=== PATIENT | female | born 1970 | race Caucasian/White ===

== ENCOUNTER 2016-10-02 12:08 | Emergency (ER) | payer SELFPAY ==
[~2016-10-02] VITALS: Ht 165.1 cm; Wt 137.3 kg
[~2016-10-02 12:08] MED LIST: ALEVE SINUS & H1 TER PO; BENTYL 20MG TAB20 MG PO; CARAFATE 1GM1 G PO; CARAFATE S1 GM/10 ML PO; CEPHALEXIN500 M1 PO; CLEOCIN HCL300 MG PO; DEPO-PROVER400 MG/ML IM; FLEXERIL 1010 MG/TAB PO; FLEXERIL10 MG PO; GAS RELIEF MAX166 MG PO; GI COCKTAIL; IMITREX NA20 MG/SPRA NS; LASIX 20MG TABL20 MG PO; LORTAB 5/500 501 TAB PO; NAPROSYN500 MG PO; NEURONTIN300 MG/CAP PO; NEXIUM 20MG20 MG; NEXIUM PO; NO HOME MEDICATIONS; NORCO 325 MG-51 TAB PO; NORFLEX 10100 MG/TAB; PEPCID 20MG TAB20 MG PO; PERCOCET 325 MG1 TA2 PO; PERCR 7.5 PO; PHENERGAN 25 TA25 MG PO; PHENERGAN25 MG RC; PRILOSEC 20MG20 MG PO; PROMETHAZINE12.5 M5 PO; PROTONIX 40MG T40 MG PO; PROVENTIL0.09 MG/A1 IH; REGLAN 10MG10 MG/TAB PO; RT ADVAIR 128 DISKUS IH; RYZOLT100 MG; TRAMADOL; TRAMADOL50 MG PO; ULTRAM 50MG TAB50 MG PO; ULTRAM ER100 MG PO; ULTRAM50 MG PO; VALIUM 5MG T5 MG/TAB PO; VICODIN 5/5001 UDTAB PO; ZEGERID 20 MG-11 CAP PO; ZOFRAN 4MG T4 MG/TAB PO; ZOFRAN4 MG PO; water pill
[2016-10-02 12:10] VITALS: TEMP 99.1
[2016-10-02] MEDS ORDERED: PHENERGAN 25 TA25 MG PO (12:16)
[2016-10-02] MEDS ORDERED: VALIUM 5MG T5 MG/TAB PO (12:17)
[2016-10-02] MEDS ORDERED: PRIL40 PO (12:17)
[2016-10-02 13:03] LABS: BASO % 0.4 % (0.0-2.0); EOS # 0.1 (0.0-0.7); EOS % 0.7 % (0-4.0); GRAN # 4.5 (1.4-6.5); GRAN % 62.4 % (42.2-75.2); HEMATOCRIT 44.5 % (37.0-47.0); HEMOGLOBIN 14.1 g/dl (12.5-16.0); LYMPH # 2.1 (1.2-3.4); MEAN CELL VOLUME 82 fl (80.0-100.0); MEAN CORPUSCULAR HEMOGLOBIN 26 pg (27.0-31.0); MEAN CORPUSCULAR HGB CONC 32 g/dl (33.0-37.0); MEAN PLATELET VOLUME 9.2 fl (7.4-10.4); MONO # 0.4 (0.1-0.6); MONO % 6.2 % (1.7-9.3); PLATELET COUNT 296 K/mm3 (130-400); RED BLOOD COUNT 5.46 M/mm3 (4.10-5.30); WHITE BLOOD COUNT 7.1 K/mm3 (4.8-10.8)
[2016-10-02 13:08] LABS: ADJUSTED CALCIUM 9.3 mg/dL (8.4-10.2); ALANINE AMINOTRANSFERASE 32 U/L (9-52); ALBUMIN 3.9 gm/dL (3.5-5.0); ALKALINE PHOSPHATASE 115 U/L (50-136); ANION GAP 12 mmol/L (7-16); BILIRUBIN,TOTAL 0.8 mg/dL (0.0-1.0); BLOOD UREA NITROGEN 9 mg/dL (7-17); CALCIUM 9.2 mg/dL (8.4-10.2); CARBON DIOXIDE 24 mmol/L (22-30); CHLORIDE 109 mmol/L (98-107); CREATININE, serum 0.95 mg/dL (0.52-1.25); GLUCOSE 96 mg/dL (74-106); POTASSIUM 3.7 mmol/L (3.4-5.0); SODIUM 144 mmol/L (137-145); TOTAL PROTEIN 7.3 gm/dL (6.4-8.2)
[2016-10-02 13:22] LABS: TROPONIN-I < 0.012 ng/mL (0.000-0.034)
[2016-10-02] MEDS ORDERED: CARAFATE S1 GM/10 ML PO (15:08)
[2016-10-02 15:12] VITALS: BP 108/80; PULSE 90
== END 2016-10-02 15:21 | disposition home or self-care (01) ==
LOC: COL.ER 12:08
PROVIDERS: Nurse Practitioner
DX: K21.9 Gastro-esophageal reflux disease without esophagitis (principal); K27.9 Peptic ulcer, site unspecified, unspecified as acute or chronic, without hemorrhage or perforation
CPT/HCPCS: J1170; J2405; J7030

== ENCOUNTER → 2017-01-10 | Outpatient (CLI) | payer OTHER ==
[~2017-01-10] MED LIST changes: +PRIL40 PO
== END ==
LOC: COL.RAD 13:38
DX: M19.012 Primary osteoarthritis, left shoulder (principal); M75.82 Other shoulder lesions, left shoulder
CPT/HCPCS: A9585; Q9967

== ENCOUNTER 2017-05-26 20:10 | Emergency (ER) | payer SELFPAY ==
[~2017-05-26] VITALS: Ht 165.1 cm; Wt 139.3 kg
[2017-05-26 20:21] VITALS: BP 129/91; TEMP 99
[2017-05-26 21:06] LABS: COLLECTION METHOD CLEAN CATCH
[2017-05-26 21:14] LABS: MUCOUS Present /lpf; PH 7 (5-8); SQUAMOUS EPITHELIAL 0-2 /hpf; URINE APPEARANCE Clear; URINE BACTERIA Occasional /hpf; URINE BILIRUBIN Negative (NEGATIVE); URINE BLOOD 2+ (NEGATIVE); URINE COLOR Yellow; URINE GLUCOSE Negative (NEGATIVE); URINE KETONE Negative (NEGATIVE); URINE LEUKOCYTE ESTERASE Trace (NEGATIVE); URINE PROTEIN(semi-quant) Negative (NEGATIVE); URINE RBC 0-2 /hpf; URINE WBC 0-2 /hpf
[2017-05-26 21:22] LABS: BASO % 0.3 % (0.0-2.0); EOS # 0.1 (0.0-0.7); EOS % 2.1 % (0-4.0); GRAN # 3.2 (1.4-6.5); GRAN % 47.7 % (42.2-75.2); HEMATOCRIT 44.1 % (37.0-47.0); HEMOGLOBIN 13.9 g/dl (12.5-16.0); LYMPH # 2.7 (1.2-3.4); LYMPH % 40.3 % (20.0-51.0); MEAN CELL VOLUME 84 fl (80.0-100.0); MEAN CORPUSCULAR HEMOGLOBIN 27 pg (27.0-31.0); MEAN CORPUSCULAR HGB CONC 32 g/dl (33.0-37.0); MEAN PLATELET VOLUME 8.9 fl (7.4-10.4); MONO # 0.6 (0.1-0.6); MONO % 8.7 % (1.7-9.3); PLATELET COUNT 243 K/mm3 (130-400); RED BLOOD COUNT 5.25 M/mm3 (4.10-5.30); WHITE BLOOD COUNT 6.7 K/mm3 (4.8-10.8)
[2017-05-26 21:26] LABS: ADJUSTED CALCIUM 9.1 mg/dL (8.4-10.2); ALBUMIN 3.6 gm/dL (3.5-5.0); BILIRUBIN,TOTAL 0.4 mg/dL (0.0-1.0); CALCIUM 8.8 mg/dL (8.4-10.2); CREATININE, serum 1.02 mg/dL (0.52-1.25); POTASSIUM 3.4 mmol/L (3.4-5.0); TOTAL PROTEIN 7.2 gm/dL (6.4-8.2)
[2017-05-26 22:50] VITALS: PULSE 92
== END 2017-05-26 22:53 | disposition home or self-care (01) ==
LOC: COL.ER 20:10
PROVIDERS: Nurse Practitioner
DX: R10.9 Unspecified abdominal pain (principal); G43.909 Migraine, unspecified, not intractable, without status migrainosus; G89.29 Other chronic pain; M79.672 Pain in left foot; Z87.11 Personal history of peptic ulcer disease; Z90.49 Acquired absence of other specified parts of digestive tract; Z98.890 Other specified postprocedural states
CPT/HCPCS: J1885; J2360

== ENCOUNTER 2017-07-23 15:10 | Emergency (ER) | payer BC ==
[~2017-07-23] VITALS: Ht 165.1 cm; Wt 139.1 kg
[2017-07-23 15:13] VITALS: BP 140/104; TEMP 99.4
[2017-07-23 16:52] LABS: BASO % 0.4 % (0.0-2.0); EOS # 0.3 (0.0-0.7); EOS % 3.2 % (0-4.0); GRAN # 4.2 (1.4-6.5); GRAN % 54.3 % (42.2-75.2); HEMATOCRIT 46.9 % (37.0-47.0); HEMOGLOBIN 14.5 g/dl (12.5-16.0); LYMPH # 2.7 (1.2-3.4); LYMPH % 34.9 % (20.0-51.0); MEAN CELL VOLUME 85 fl (80.0-100.0); MEAN CORPUSCULAR HEMOGLOBIN 26 pg (27.0-31.0); MEAN CORPUSCULAR HGB CONC 31 g/dl (33.0-37.0); MEAN PLATELET VOLUME 9.2 fl (7.4-10.4); MONO # 0.5 (0.1-0.6); MONO % 6.7 % (1.7-9.3); PLATELET COUNT 301 K/mm3 (130-400); RED BLOOD COUNT 5.54 M/mm3 (4.10-5.30); REDCELL DISTRIBUTION WIDTH-CV 14.8 % (11.5-14.5)
[2017-07-23] MEDS ORDERED: BENTYL 10MG10 MG/CAP PO (16:53)
[2017-07-23] MEDS ORDERED: VITAMINE200 PO (16:54)
[2017-07-23] MEDS ORDERED: VITAMIN B COMPL1 SGL PO (16:54)
[2017-07-23 16:56] LABS: ALBUMIN 4.1 gm/dL (3.5-5.0); BILIRUBIN,TOTAL 0.7 mg/dL (0.0-1.0); CALCIUM 9.3 mg/dL (8.4-10.2); CREATININE, serum 0.97 mg/dL (0.52-1.25); POTASSIUM 3.7 mmol/L (3.4-5.0); TOTAL PROTEIN 7.7 gm/dL (6.4-8.2)
[2017-07-23] MEDS ORDERED: PEPCID40 MG PO (17:42)
[2017-07-23] MEDS ORDERED: CARAFATE 1GM1 G PO (17:42)
[2017-07-23 18:29] VITALS: PULSE 90
== END 2017-07-23 18:31 | disposition home or self-care (01) ==
LOC: COL.ER 15:10
PROVIDERS: Emergency Medicine
DX: K29.70 Gastritis, unspecified, without bleeding (principal); K21.9 Gastro-esophageal reflux disease without esophagitis; Z90.49 Acquired absence of other specified parts of digestive tract; Z88.8 Allergy status to other drugs, medicaments and biological substances; Z91.040 Latex allergy status
CPT/HCPCS: J2060; J2550; J3010; J7030

== ENCOUNTER 2018-08-24 06:56 | Emergency (ER) | payer SELFPAY | END 2018-08-24 07:33 | disposition home or self-care (01) | LOC: COL.ER 06:56 | DX: H57.89 Other specified disorders of eye and adnexa (principal); Z98.890 Other specified postprocedural states ==

== ENCOUNTER 2019-03-02 22:50 | Emergency (ER) | payer SELFPAY ==
[~2019-03-02] VITALS: Ht 165.1 cm; Wt 141.8 kg
[~2019-03-02 22:50] MED LIST changes: +BACTROBAN 22GM22 GM TP; +BENTYL 10MG10 MG/CAP PO; +NEURONTIN600 MG/TAB; +PEPCID40 MG PO; +VALTREX1 GM PO; +VITAMIN B COMPL1 SGL PO; +VITAMINE200 PO
[2019-03-02 23:07] VITALS: TEMP 97.6
[2019-03-03 02:59] LABS: BASO % 0.2 % (0.0-2.0); EOS # 0.2 (0.0-0.7); EOS % 1.9 % (0-4.0); GRAN # 6.3 (1.4-6.5); GRAN % 56.2 % (42.2-75.2); HEMATOCRIT 41.1 % (37.0-47.0); HEMOGLOBIN 12.4 g/dl (12.5-16.0); LYMPH # 3.8 (1.2-3.4); LYMPH % 33.9 % (20.0-51.0); MEAN CELL VOLUME 81 fl (80.0-100.0); MEAN CORPUSCULAR HEMOGLOBIN 25 pg (27.0-31.0); MEAN CORPUSCULAR HGB CONC 30 g/dl (33.0-37.0); MEAN PLATELET VOLUME 9.5 fl (7.4-10.4); MONO # 0.8 (0.1-0.6); MONO % 7.4 % (1.7-9.3); PLATELET COUNT 318 K/mm3 (130-400); RED BLOOD COUNT 5.06 M/mm3 (4.10-5.30); REDCELL DISTRIBUTION WIDTH-CV 15.9 % (11.5-14.5)
[2019-03-03 03:08] LABS: CALCIUM 8.3 mg/dL (8.4-10.2); CREATININE, serum 1.06 (0.52-1.25); POTASSIUM 3.9 mmol/L (3.4-5.0)
[2019-03-03 04:28] VITALS: BP 140/85; PULSE 75
== END 2019-03-03 04:43 | disposition home or self-care (01) ==
LOC: COL.ER 22:50
PROVIDERS: Physician Assistant
DX: G43.909 Migraine, unspecified, not intractable, without status migrainosus (principal)
CPT/HCPCS: J1200; J2060; J2270; J2765; J7030

== ENCOUNTER 2020-03-11 12:59 | Emergency (ER) | payer SELFPAY ==
[~2020-03-11] VITALS: Ht 165.1 cm; Wt 138.2 kg
[~2020-03-11 12:59] MED LIST changes: +ALBUTEROL0.83 MG/ML IH; +PREDNISONE20 MG PO
[2020-03-11 13:10] VITALS: BP 138/111; TEMP 98.5
[2020-03-11] MEDS ORDERED: MEDROL 4MG DOSPA4 MG PO (13:19)
[2020-03-11 13:47] LABS: BASO % 0.2 % (0.0-2.0); EOS # 0.3 (0.0-0.7); EOS % 2.9 % (0-4.0); GRAN # 5.2 (1.4-6.5); GRAN % 60.9 % (42.2-75.2); HEMATOCRIT 43.4 % (37.0-47.0); HEMOGLOBIN 13.3 g/dl (12.5-16.0); LYMPH # 2.4 (1.2-3.4); LYMPH % 28.1 % (20.0-51.0); MEAN CELL VOLUME 79 fl (80.0-100.0); MEAN CORPUSCULAR HEMOGLOBIN 24 pg (27.0-31.0); MEAN CORPUSCULAR HGB CONC 31 g/dl (33.0-37.0); MONO # 0.6 (0.1-0.6); MONO % 7.4 % (1.7-9.3); PLATELET COUNT 328 K/mm3 (130-400); RED BLOOD COUNT 5.53 M/mm3 (4.10-5.30); REDCELL DISTRIBUTION WIDTH-CV 15.8 % (11.5-14.5)
[2020-03-11 13:57] LABS: ALANINE AMINOTRANSFERASE 15 U/L (4-34); ALBUMIN 3.7 gm/dL (3.5-5.0); ALKALINE PHOSPHATASE 89 U/L (50-136); ANION GAP 8 mmol/L (7-16); AST,SGOT 24 U/L (15-37); BILIRUBIN,TOTAL 0.5 mg/dL (0.0-1.0); BLOOD UREA NITROGEN 7 mg/dL (7-17); CALCIUM 8.8 mg/dL (8.4-10.2); CARBON DIOXIDE 27 mmol/L (22-30); CHLORIDE 104 mmol/L (98-107); CREATININE, serum 0.95 (0.52-1.25); GLUCOSE 96 mg/dL (74-106); POTASSIUM 4.1 mmol/L (3.4-5.0); SODIUM 139 mmol/L (137-145); TOTAL PROTEIN 7.2 gm/dL (6.4-8.2)
[2020-03-11 14:09] LABS: TROPONIN-I < 0.012 ng/mL (0.000-0.035)
[2020-03-11 14:55] VITALS: PULSE 99
== END 2020-03-11 14:55 | disposition home or self-care (01) ==
LOC: COL.ER 12:59
PROVIDERS: Emergency Medicine
DX: R05 Cough (principal); R51 Headache; Z32.02 Encounter for pregnancy test, result negative; Z20.828 Contact with and (suspected) exposure to other viral communicable diseases
CPT/HCPCS: J1100; J7030

== ENCOUNTER 2020-04-18 15:57 | Emergency (ER) | payer SELFPAY ==
[~2020-04-18] VITALS: Ht 152.4 cm; Wt 145.9 kg
[~2020-04-18 15:57] MED LIST changes: +MEDROL 4MG DOSPA4 MG PO
[2020-04-18 16:03] VITALS: TEMP 98.6
[2020-04-18 16:50] LABS: BASO % 0.2 % (0.0-2.0); EOS # 0.1 (0.0-0.7); EOS % 1.1 % (0-4.0); GRAN % 55.7 % (42.2-75.2); HEMATOCRIT 44.5 % (37.0-47.0); HEMOGLOBIN 13.7 g/dl (12.5-16.0); LYMPH # 3.6 (1.2-3.4); MEAN CELL VOLUME 79 fl (80.0-100.0); MEAN CORPUSCULAR HEMOGLOBIN 24 pg (27.0-31.0); MEAN CORPUSCULAR HGB CONC 31 g/dl (33.0-37.0); MEAN PLATELET VOLUME 8.9 fl (7.4-10.4); MONO # 0.9 (0.1-0.6); MONO % 8.2 % (1.7-9.3); PLATELET COUNT 370 K/mm3 (130-400); RED BLOOD COUNT 5.64 M/mm3 (4.10-5.30); REDCELL DISTRIBUTION WIDTH-CV 16.9 % (11.5-14.5)
[2020-04-18 16:57] LABS: INR 1.1 (0.8-3.0); PROTHROMBIN TIME 11.8 SECONDS (9.7-12.8)
[2020-04-18 17:02] LABS: ALANINE AMINOTRANSFERASE 21 U/L (4-34); ALKALINE PHOSPHATASE 117 U/L (50-136); ANION GAP 5 mmol/L (7-16); AST,SGOT 22 U/L (15-37); BILIRUBIN,TOTAL 0.4 mg/dL (0.0-1.0); BLOOD UREA NITROGEN 12 mg/dL (7-17); CARBON DIOXIDE 28 mmol/L (22-30); CHLORIDE 104 mmol/L (98-107); CREATININE, serum 1.06 (0.52-1.25); GLUCOSE 82 mg/dL (74-106); LIPASE 74 U/L (23-300); POTASSIUM 4.3 mmol/L (3.4-5.0); SODIUM 138 mmol/L (137-145); TOTAL PROTEIN 7.4 gm/dL (6.4-8.2)
[2020-04-18 17:10] LABS: D-DIMER < 200.00 ng/mLDDu (200-230)
[2020-04-18 17:15] LABS: TROPONIN-I < 0.012 ng/mL (0.000-0.035)
[2020-04-18] MEDS ORDERED: PREDNISONE20 MG PO (17:24)
[2020-04-18] MEDS ORDERED: VENTOLIN0.09 MG IH (17:25)
[2020-04-18] MEDS ORDERED: AMOXICILLIN 8751 TAB PO (17:30)
[2020-04-18 17:47] VITALS: BP 129/71; PULSE 85
== END 2020-04-18 17:48 | disposition home or self-care (01) ==
LOC: COL.ER 15:57
PROVIDERS: Emergency Medicine
DX: R06.02 Shortness of breath (principal); J45.909 Unspecified asthma, uncomplicated; Z20.828 Contact with and (suspected) exposure to other viral communicable diseases; Z90.49 Acquired absence of other specified parts of digestive tract; Z88.6 Allergy status to analgesic agent; Z79.52 Long term (current) use of systemic steroids
CPT/HCPCS: J7030

== ENCOUNTER 2022-01-07 16:38 | Observation (INO) | payer SELFPAY ==
[~2022-01-07] VITALS: Ht 165.1 cm; Wt 133.7 kg
[~2022-01-07 16:38] MED LIST changes: +AMOXICILLIN 8751 TAB PO; +VENTOLIN0.09 MG IH
[2022-01-07 17:57] LABS: BASO % 0.2 % (0.0-2.0); EOS # 0.2 K/mm3 (0.0-0.7); EOS % 2.7 % (0.0-4.0); GRAN # 5.3 K/mm3 (1.4-6.5); GRAN % 62.8 % (42.2-75.2); HEMATOCRIT 46.6 % (37.0-47.0); HEMOGLOBIN 13.9 g/dl (12.5-16.0); LYMPH # 2.4 K/mm3 (1.2-3.4); LYMPH % 27.8 % (20.0-51.0); MEAN CELL VOLUME 83 fl (80.0-100.0); MEAN CORPUSCULAR HEMOGLOBIN 25 pg (27-31); MEAN CORPUSCULAR HGB CONC 30 g/dl (33.0-37.0); MEAN PLATELET VOLUME 9.1 fl (7.4-10.4); MONO # 0.5 K/mm3 (0.1-0.6); MONO % 6.1 % (1.7-9.3); PLATELET COUNT 338 K/mm3 (130-400); RED BLOOD COUNT 5.64 M/mm3 (4.10-5.30); REDCELL DISTRIBUTION WIDTH-CV 15.5 % (11.5-14.5)
[2022-01-07 18:10] LABS: ALANINE AMINOTRANSFERASE 14 U/L (0-55); ALBUMIN 3.4 gm/dL (3.5-5.0); ALKALINE PHOSPHATASE 91 U/L (40-150); ANION GAP 12 mmol/L (7-16); AST,SGOT 17 U/L (5-34); BILIRUBIN,TOTAL 0.4 mg/dL (0.2-1.2); BLOOD UREA NITROGEN 14 mg/dL (10-20); CALCIUM 9.3 mg/dL (8.4-10.2); CARBON DIOXIDE 25 mmol/L (22-29); CHLORIDE 107 mmol/L (98-107); CREATININE, serum 0.97 mg/dL (0.57-1.11); GLUCOSE 92 mg/dL (70-99); POTASSIUM 4.7 mmol/L (3.5-4.5); SODIUM 144 mmol/L (136-145); TOTAL PROTEIN 7.5 gm/dL (6.2-8.1)
[2022-01-07 18:17] LABS: TROPONIN-I < 0.010 ng/mL (0.00-0.033)
[2022-01-07 21:04] VITALS: BP 140/92; PULSE 92; TEMP 98.5
[2022-01-07 23:47] VITALS: BP 123/78; PULSE 93; TEMP 98.6
[2022-01-08 04:42] VITALS: BP 106/68; PULSE 80; TEMP 98.2
[2022-01-08 07:02] LABS: BASO % 0.3 % (0.0-2.0); EOS # 0.3 K/mm3 (0.0-0.7); EOS % 3.5 % (0.0-4.0); GRAN # 4.1 K/mm3 (1.4-6.5); GRAN % 46.4 % (42.2-75.2); HEMATOCRIT 43.4 % (37.0-47.0); HEMOGLOBIN 13.6 g/dl (12.5-16.0); LYMPH # 3.7 K/mm3 (1.2-3.4); LYMPH % 42.7 % (20.0-51.0); MEAN CELL VOLUME 81 fl (80.0-100.0); MEAN CORPUSCULAR HEMOGLOBIN 25 pg (27-31); MEAN CORPUSCULAR HGB CONC 31 g/dl (33.0-37.0); MEAN PLATELET VOLUME 9.4 fl (7.4-10.4); MONO # 0.6 K/mm3 (0.1-0.6); MONO % 6.9 % (1.7-9.3); PLATELET COUNT 344 K/mm3 (130-400); RED BLOOD COUNT 5.35 M/mm3 (4.10-5.30); REDCELL DISTRIBUTION WIDTH-CV 15.5 % (11.5-14.5)
[2022-01-08 07:19] LABS: CALCIUM 8.8 mg/dL (8.4-10.2); CREATININE, serum 0.96 mg/dL (0.57-1.11); MAGNESIUM 2.2 mg/dL (1.6-2.6)
[2022-01-08 08:00] VITALS: BP 141/82; PULSE 87; TEMP 98.2
--- NOTE | 2022-01-08 10:49 | NUR ---
PT IS PLEASANT AND ALERT TODAY. SHE COMPLAINS OF 9/10 PAIN AND REALLY WANTS TO FIND THE REASON FOR THE NEW SPASMS IN HER CHEST. PT IS AWARE OF ECHOCARDIOGRAM AND STRESS TEST ORDERED FOR TODAY. pt DOES NOT wish to try oral pain medications until after she is able to eat because they make her sick. Assessment completed. VSS. pt has call light and understands to call for help.
--- NOTE | 2022-01-08 10:57 | NUR ---
CATRINA met with the patient to discuss discharge plan. The patient lives in [place] with her 21-year-old son, Rubén Alberto. She states that her fiance, Jose Bloom (ph#[phone]), occasionally stays with her. She reports independence with ADLs and does not have any DME. The patient receives primary care from [facility] and her medications from [facility]. She reports occasional difficulties affording her meds. She states that she utilizes [employer] to assist with paying for her meds. CATRINA informed her of [employer] and prescription/financial assistance through them. The patient states that she is aware of them, but but has not utilized their services yet. The patient does not have a DPOA-HC, but she was interested in obtaining a form. CATRINA provided. The patient states that she is not and that she has two children: Rubén and Rafy. Rafy lives in [place]. CATRINA informed her how her two children are her legal next of kin. The patient verbalized understanding. The patient plans to return home with her son upon discharge. No additional needs at this time. *Discharge plan: home with son*
[2022-01-08 11:46] VITALS: BP 137/87; PULSE 88; TEMP 98.4
--- NOTE | 2022-01-08 13:35 | NUR ---
Initial visit; Patient thanked Checker Cashier for looking in on her, visiting and making her feel comfortable. Alisha was receptive to prayer and for Checker Cashier to keep her in her prayers. Checker Cashier will follow-up while patient is hospitalized.
[2022-01-08 15:41] VITALS: BP 132/71; PULSE 107; TEMP 98.3
[2022-01-08 20:57] VITALS: BP 136/74; PULSE 100; TEMP 98.2
--- NOTE | 2022-01-08 23:02 | NUR ---
ALERT AND OX4. DENIES SOA,CHEST PAIN OR DIZZY. DOES HAVE SPASMS IN UPPER CHEST. FLEXERIL AND HOLDEN, TYL GIVEN FOR PAIN. SHOWERED THIS EVENING. WILL BE NPO AT 12 FOR LEXISCAN IN AM. NO CAFFEINE GIVEN BY THIS NURSE AND INSTR NOT HAVE ANY TONIGHT COULD ALTER TEST. PT V/U. CALL LIGHT WI REACH- NEEDS MET.
[2022-01-09] VITALS (10 sets, daily range): BP systolic 97–134; BP diastolic 61–79; PULSE 75–100; TEMP 98–98.4
--- NOTE | 2022-01-09 10:52 | NUR ---
PT RESTING IN BED. MORNING MEDICATIONS GIVEN. SHIFT ASSESSMENT COMPLETED. PT RESTING IN BED FOLLOWING LEXISCAN, REMAINS NPO AWAITING RESULTS. DENIES ANY NEEDS AT THIS TIME. COMPLAINS OF A TENSE FEELING IN HER BACK. WILL CONTINUE TO MONITOR.
--- NOTE | 2022-01-09 21:50 | NUR ---
ALERT AND OX4. DENIES SOA, DIZZY, CHEST/PAIN TO RT UPPER CHEST INTO NECK AND BACK. PM MEDS GIVEN. POC DISCUSSED. WILL BE NPO AT 12 FOR HEART CATH IN AM. CALL LIGHT WI REACH. NEEDS MET.
[2022-01-10] VITALS (13 sets, daily range): BP systolic 96–140; BP diastolic 52–86; PULSE 76–104; TEMP 98.2–98.4
--- NOTE | 2022-01-10 05:46 | NUR ---
IV tubing for research laboratory technician, am meds. Consent signed for heart cath. Has been NPO for procedure. Needs met. Understands POC.
--- NOTE | 2022-01-10 08:19 | NUR ---
PT AMBULATING AROUND ROOM. IV MEDICATIONS GIVEN THIS AM, PO MEDICATIONS HELD FOR PROCEDURE. SHIFT ASSESSMENT COMPLETED. PT REPORTS ABDOMINAL DISCOMFORT THIS AM. THIS RN NOTIFIED BY TELEMETRY OF HEART RATE IN THE 150S, PT ASYMMPTOMATIC AND VSS. BEAR NOTIFIED. PT DENIES ANY NEEDS AT THIS TIME.
--- NOTE | 2022-01-10 09:43 | NUR ---
Follow-up visit; Patient doing better. Alisha thanked for checking on her and wishing her well.
--- NOTE | 2022-01-10 18:17 | NUR ---
See merge for all medication, assessment, intervention and vital sign times.
--- NOTE | 2022-01-10 20:20 | NUR ---
PT COMPLAINED OF PAIN TO RADIAL AND FEMORAL SITE. BECAUSE I WAS IN WITH ANOTHER PT, [place] MONTOYA, WENT IN TO CHECK ON PT. COAL CUTTER, PROVIDED PT PAIN RELIEF, EVENING MEDS AND REMOVED 2MLS FROM PT'S RADIAL BAND. PT STARTED TO BLEED. COAL CUTTER REINFLATED BAND BY 5MLS. COAL CUTTER CHECK FEMORAL SITE. SITE FOUND TO HAVE A HEMATOMA DELEVOPING. SANDBAG PLACED ON HEMATOMA. HEMATOMA REDUCED. WILL CONTINUE TO MONITOR. CALL LIGHT WITHIN REACH.
[2022-01-10] MEDS ORDERED: LIPITOR 40MG TA40 MG PO ×2 (23:05)
[2022-01-11 00:05] VITALS: BP 121/81; PULSE 94; TEMP 99
[2022-01-11 03:27] VITALS: BP 102/71; PULSE 105; TEMP 98.4
--- NOTE | 2022-01-11 06:00 | NUR ---
RADIAL BAND COMPLETELY REMOVED WITH NO FATHER ISSUES. A LITTLE BRUISING TO RADIAL SITE, HOWEVER, SITE SHOWS NO SIGNS OF BLEEDING OR HEMATOMA. FEMORAL SITE ALSO SHOWS NO SIGNS OF BLEEDING OR HEMATOMA. DRESSING CDI. PT STATED BOTH SITES FELT BETTER. PT FELT SHE COULD FINALLY GET SOME SLEEP, WITHOUT PAIN OR DISCOMFORT. CALL LIGHT WITHIN REACH.
[2022-01-11 08:03] VITALS: BP 101/54; PULSE 90; TEMP 98.3
[2022-01-11] MEDS ORDERED: LIPITOR 40MG TA40 MG PO (08:55)
--- NOTE | 2022-01-11 09:21 | NUR ---
PT RESTING IN BED. MORNING MEDICATIONS GIVEN. SHIFT ASSESSMENT COMPLETED. R WRIST HAS SMALL AMOUNT OF BRUISING TO HEART CATH SITE. R FEMORAL SITE IS SOFT WITH NO HEMTOMA, DRESSING C/D/I. PT DENIES ANY PAIN OR NEEDS AT THIS TIME. PLANNING FOR D/C.
[2022-01-11] MEDS ORDERED: PREDNISONE10 MG PO (14:23)
[2022-01-11] MEDS ORDERED: PROAIR HFA0.09 MG/AC IH (14:23)
--- NOTE | 2022-01-11 15:12 | NUR ---
D/C IV. TELE D/C. DISCHARGE INSTRUCTIONS GIVEN, SISTER AT BEDSIDE, ALL QUESTIONS ANSWERED. PT WILL BE ESCORTED DOWN WHEN DRESSED AND READY.
--- NOTE | 2022-01-11 16:01 | NUR ---
PT ESCORTED OFF OF UNIT WITH PERSONAL BELONGINGS. WILL D/C FROM SYSTEM.
== END 2022-01-11 16:02 | disposition home or self-care (01) ==
LOC: COL.ER 16:38 → MEDICAL 19:45
PROVIDERS: Physician Assistant; Student in an Organized Health Care Education/Training Program; ADMIT Family Medicine
DX: R07.89 Other chest pain (principal); R06.09 Other forms of dyspnea; J45.909 Unspecified asthma, uncomplicated; E66.01 Morbid (severe) obesity due to excess calories; K21.9 Gastro-esophageal reflux disease without esophagitis; G89.29 Other chronic pain; K76.89 Other specified diseases of liver; I07.1 Rheumatic tricuspid insufficiency
CPT/HCPCS: A9500; C1760; C1769; C1894; C9113; G0378; J1644; J1650; J2250; J2270; J2360; J2405; J2785; J3010; J3360; J7512; Q9967

== ENCOUNTER 2023-07-05 21:16 | Emergency (ER) | payer MEDICARE, MEDICAID ==
[~2023-07-05] VITALS: Ht 165.1 cm; Wt 147.7 kg
[~2023-07-05 21:16] MED LIST changes: +LIPITOR 40MG TA40 MG PO; +PREDNISONE10 MG PO; +PROAIR HFA0.09 MG/AC IH; +XARELTO STARTER20 MG PO
[2023-07-05 22:12] LABS: BASO % 0.3 % (0.0-2.0); EOS # 0.2 K/mm3 (0.0-0.7); EOS % 2.1 % (0.0-4.0); GRAN % 63.1 % (42.2-75.2); HEMOGLOBIN 14.4 g/dl (12.5-16.0); LYMPH # 2.7 K/mm3 (1.2-3.4); LYMPH % 28.1 % (20.0-51.0); MEAN CELL VOLUME 84 fl (80.0-100.0); MEAN CORPUSCULAR HEMOGLOBIN 26 pg (27-31); MEAN CORPUSCULAR HGB CONC 31 g/dl (33.0-37.0); MEAN PLATELET VOLUME 8.9 fl (7.4-10.4); MONO # 0.6 K/mm3 (0.1-0.6); PLATELET COUNT 285 K/mm3 (130-400); RED BLOOD COUNT 5.48 M/mm3 (4.10-5.30); REDCELL DISTRIBUTION WIDTH-CV 15.5 % (11.5-14.5)
[2023-07-05 22:31] LABS: ALANINE AMINOTRANSFERASE 26 U/L (0-55); ALKALINE PHOSPHATASE 98 U/L (40-150); ANION GAP 11 mmol/L (7-16); AST,SGOT 21 U/L (5-34); BILIRUBIN,TOTAL 0.3 mg/dL (0.2-1.2); BLOOD UREA NITROGEN 12 mg/dL (10-20); CALCIUM 9.1 mg/dL (8.4-10.2); CARBON DIOXIDE 21 mmol/L (22-29); CHLORIDE 110 mmol/L (98-107); CREATININE, serum 1.25 mg/dL (0.57-1.11); GLUCOSE 91 mg/dL (70-99); LIPASE 4 U/L (8-78); POTASSIUM 4.3 mmol/L (3.5-4.5); SODIUM 142 mmol/L (136-145); TOTAL PROTEIN 6.7 gm/dL (6.2-8.1)
[2023-07-05 22:58] LABS: TROPONIN-I < 0.010 ng/mL (0.00-0.033)
[2023-07-05] MEDS ORDERED: PREDNISONE20 MG PO (23:31)
[2023-07-05 23:34] VITALS: BP 108/74; PULSE 87; TEMP 98.4
== END 2023-07-05 23:34 | disposition home or self-care (01) ==
LOC: COL.ER 21:16
PROVIDERS: Nurse Practitioner Primary Care
DX: J45.901 Unspecified asthma with (acute) exacerbation (principal); E66.01 Morbid (severe) obesity due to excess calories; Z91.040 Latex allergy status; Z79.51 Long term (current) use of inhaled steroids
CPT/HCPCS: J7512

== ENCOUNTER 2023-08-04 02:21 | Emergency (ER) | payer MEDICARE, MEDICAID ==
[~2023-08-04] VITALS: Ht 165.1 cm; Wt 147.7 kg
[2023-08-04 02:34] VITALS: TEMP 98.2
[2023-08-04] MEDS ORDERED: NS 1,000 ML IV ONE (03:00)
[2023-08-04] MEDS ORDERED: SODIUM CHLORIDE 0.9% IH ONE (03:00)
[2023-08-04] MEDS ORDERED: Albuterol/Ipratropium 3 MG-0.5 MG/3 ML Neb Soln IH SCH (03:00)
[2023-08-04 03:02] LABS: BASO % 0.2 % (0.0-2.0); GRAN # 10.6 K/mm3 (1.4-6.5); GRAN % 77.1 % (42.2-75.2); HEMATOCRIT 48.4 % (37.0-47.0); LYMPH # 2.3 K/mm3 (1.2-3.4); LYMPH % 16.4 % (20.0-51.0); MEAN CELL VOLUME 84 fl (80.0-100.0); MEAN CORPUSCULAR HEMOGLOBIN 26 pg (27-31); MEAN CORPUSCULAR HGB CONC 31 g/dl (33.0-37.0); MEAN PLATELET VOLUME 9.1 fl (7.4-10.4); MONO # 0.8 K/mm3 (0.1-0.6); MONO % 5.6 % (1.7-9.3); PLATELET COUNT 363 K/mm3 (130-400); RED BLOOD COUNT 5.75 M/mm3 (4.10-5.30); REDCELL DISTRIBUTION WIDTH-CV 16.1 % (11.5-14.5)
[2023-08-04 03:13] LABS: ALANINE AMINOTRANSFERASE 26 U/L (0-55); ALBUMIN 3.3 gm/dL (3.5-5.0); ALKALINE PHOSPHATASE 119 U/L (40-150); ANION GAP 12 mmol/L (7-16); AST,SGOT 21 U/L (5-34); BILIRUBIN,TOTAL 0.3 mg/dL (0.2-1.2); BLOOD UREA NITROGEN 18 mg/dL (10-20); CALCIUM 9.6 mg/dL (8.4-10.2); CARBON DIOXIDE 20 mmol/L (22-29); CHLORIDE 111 mmol/L (98-107); CREATININE, serum 1.41 mg/dL (0.57-1.11); GLUCOSE 108 mg/dL (70-99); POTASSIUM 4.3 mmol/L (3.5-4.5); SODIUM 143 mmol/L (136-145); TOTAL PROTEIN 7.7 gm/dL (6.2-8.1)
[2023-08-04 03:20] LABS: TROPONIN-I < 0.010 ng/mL (0.00-0.033)
[2023-08-04 03:29] LABS: C-REACTIVE PROTEIN 0.98 mg/dL (0.00-0.50)
[2023-08-04 03:52] LABS: COLLECTION METHOD CLEAN CATCH
[2023-08-04 03:58] LABS: URINE APPEARANCE Clear (CLEAR/HAZY); URINE BLOOD Negative (NEGATIVE); URINE COLOR YELLOW (YELLOW); URINE GLUCOSE Negative (NEGATIVE); URINE KETONE Negative (NEGATIVE); URINE NITRATE Negative (NEGATIVE); URINE PROTEIN(semi-quant) Negative (NEGATIVE); URINE UROBILINOGEN 0.2 E.U/dL (0.2-1.0)
[2023-08-04 04:09] LABS: URINE RBC None Seen /hpf (0-2)
[2023-08-04 04:10] LABS: MUCOUS Present (NOT PRESENT); URINE BACTERIA Rare /hpf (NONE SEEN)
[2023-08-04] MEDS ORDERED: TESSALON P100 MG/CAP PO (05:19)
[2023-08-04] MEDS ORDERED: RT ADVAIR 228 DISKUS IH (05:38)
[2023-08-04] MEDS ORDERED: IPRATROPIUM BROM3 M1 IH (05:38)
[2023-08-04 05:45] VITALS: BP 123/88; PULSE 97
== END 2023-08-04 05:45 | disposition home or self-care (01) ==
LOC: COL.ER 02:21
PROVIDERS: Emergency Medicine
DX: J06.9 Acute upper respiratory infection, unspecified (principal); J45.909 Unspecified asthma, uncomplicated; Z79.52 Long term (current) use of systemic steroids; Z79.51 Long term (current) use of inhaled steroids; Z91.040 Latex allergy status
CPT/HCPCS: J7030